=== PATIENT | male | born 1970 | race Caucasian/White ===

== ENCOUNTER 2020-05-14 15:22 | Emergency (ER) | payer OTHER, SELFPAY ==
[2020-05-14 15:35] VITALS: BP 123/79; PULSE 99; RESP 18; TEMP 36.6; O2SAT 99
--- NOTE | 2020-05-14 15:59 | ED.SKABFB ---
HPI - Skin/Abscess/Foreign Bdy General Chief complaint: Skin/Abscess/Foreign Body Stated complaint: rash Time Seen by Provider: 05/14/20 15:41 Source: patient and RN notes reviewed Mode of arrival: ambulatory Limitations: no limitations History of Present Illness HPI narrative: Patient presents today complaining of widespread pruritic rash x3 months. States it is worsening and is now spread to his feet use. States that several months ago he was given a cream for ringworm by his PCP, but reports it did not work. He has been using Tinactin spray without relief. Denies pain. Denies recent illness. MD complaint: rash Related Data Home Medications Medication Instructions Recorded Confirmed No Home Medications 05/14/20 05/14/20 Allergies Allergy/AdvReac Type Severity Reaction Status Date / Time No Known Allergies Allergy Verified 05/14/20 15:26 Review of Systems Review of Systems: Narrative: CONSTITUTIONAL: Denies body aches, fever, chills, or sweats. EYES: Denies visual changes, redness, or discharge. ENT: Denies rhinorrhea, congestion, sore throat, or otalgia. CARDIOVASCULAR: Denies chest pain, palpitations, or edema. RESPIRATORY: Denies cough or dyspnea. GASTROINTESTINAL: Denies abdominal pain, nausea, vomiting, or diarrhea. GENITOURINARY: Denies dysuria or hematuria. SKIN: Denies wounds.+ Pruritic rash MUSCULOSKELETAL: Denies back pain, joint pain, or myalgia. NEUROLOGIC: Denies headache, numbness, tingling, or weakness. PSYCH: Denies depression or anxiety. PMFSH Comments At time of signature, I have reviewed and agree with nursing past medical, surgical, social and family history unless otherwise noted. Please see nursing chart for further information. There is no relevant family history pertinent to the presenting complaint Exam Narrative: Exam Narrative: GENERAL: Well-appearing, well-nourished, and in no acute distress. HEAD: Normocephalic, atraumatic. EYES: EOMI. No redness or drainage. Conjunctivae normal. ENT: Mucous membranes pink and moist. NECK: Normal AROM. Supple. No lymphadenopathy. CHEST: No respiratory distress. EXTREMITIES: Normal range of motion. No edema. SKIN: Warm, dry. Capillary refill normal. Normal skin turgor. + Multiple round erythematous plaque lesions with central clearing, and varying sizes. Most concentrated to the popliteal fossa is, behind the neck and upper back, lower abdomen, and some to the cheeks. NEURO: No focal deficits. Alert and oriented x3. Gait steady. PSYCH: Normal affect. No signs of depression or anxiety. Course Vital Signs Vital signs: Vital Signs Temperature 97.8 F 05/14/20 15:35 Pulse Rate 99 05/14/20 15:35 Respiratory Rate 18 05/14/20 15:35 Blood Pressure 123/79 05/14/20 15:35 Pulse Oximetry 99 05/14/20 15:35 Temperature 97.8 F 05/14/20 15:35 Pulse Rate 99 05/14/20 15:35 Respiratory Rate 18 05/14/20 15:35 Blood Pressure 123/79 05/14/20 15:35 Pulse Oximetry 99 05/14/20 15:35 MDM - Skin/Abscess/Foreign Bdy Differential Diagnosis Differential diagnosis: Likely abscess of skin or subcutaneous tissue, viral exanthem, dermatophytosis, urticaria, cellulitis, eczema, impetigo and contact dermatitis Critical Care Time Critical Care Time Critical Care Time: No Discharge Plan Discharge Clinical Impression: Tinea corporis Patient Disposition: Home, Self-Care Condition: Stable Instructions: Tinea Corporis (ED) Additional Instructions: You have some widespread ringworm. Purchase some Hydrocortisone cream and Clotrimazole (Lotrimin) cream. Mix together in equal parts and apply twice daily for at least 3 weeks. Only apply the Clotrimazole to your face. Keep your appointment with your PCP for follow up. Your blood pressure was elevated above 120/80 today at Urgent Care. This puts you above the threshold for follow up. Please schedule a followup visit with your personal physician as soon as poss
== END 2020-05-14 16:03 | disposition home or self-care (01) ==
PROVIDERS: Emergency Provider Nurse Practitioner; PCP Family Medicine
DX: B35.4 Tinea corporis (principal)
CPT/HCPCS: 99201; G0463